=== PATIENT | male | born 1990 ===

== ENCOUNTER 2021-04-25 10:18 | Emergency (ER) | payer SELFPAY ==
[2021-04-25 11:19] VITALS: BP 133/65
[2021-04-25] MEDS ORDERED: ASPIRIN 325 MG TAB PO ONE (11:19)
--- NOTE | 2021-04-25 11:20 | Event Note ---
ED Screening Note Date of service: 04/25/21 Time: 11:18 ED Screening Note: 31 y o male presents with cp after cocaine use yesterday This initial assessment/diagnostic orders/clinical plan/treatment(s) is/are subject to change based on patients health status, clinical progression and re-assessment by fellow clinical providers in the ED. Further treatment and workup at subsequent clinical providers discretion. Patient/guardian urged not to elope from the ED as their condition may be serious if not clinically assessed and managed. Initial orders include: cp protocol
--- NOTE | 2021-04-25 12:05 | XRay Report ---
CHEST 2 VIEWS INDICATION / CLINICAL INFORMATION: cp. COMPARISON: None available. FINDINGS: SUPPORT DEVICES: None. HEART / MEDIASTINUM: No significant abnormality. LUNGS / PLEURA: No significant pulmonary or pleural abnormality. No pneumothorax. ADDITIONAL FINDINGS: No significant additional findings. IMPRESSION: No significant abnormality Signer Name: Jeffrey Díaz MD FACR Signed: 04/25/2021 12:01 PM Workstation Name: [id number]
[2021-04-25 13:22] LABS: Basophils % (Auto) 0.4 % (0.0-1.8); Eosinophils # (Auto) 0.1 K/mm3 (0.0-0.4); Eosinophils % (Auto) 0.5 % (0.0-4.3); Hematocrit 48.5 % (35.5-45.6); Hemoglobin 16.9 gm/dl (11.8-15.2); Lymphocytes # (Auto) 1.8 K/mm3 (1.2-5.4); Lymphocytes % (Auto) 16.2 % (13.4-35.0); Mean Corpuscular HGB Conc 35 % (32-34); Mean Corpuscular Volume 95 fl (84-94); Platelet Count 192 K/mm3 (140-440); Red Blood Count 5.09 M/mm3 (3.65-5.03); Red Cell Distribution Width 12.5 % (13.2-15.2)
[2021-04-25 13:42] LABS: Alanine Aminotransferase 29 units/L (7-56); Albumin 4.6 g/dL (3.9-5); Blood Urea Nitrogen 18 mg/dL (9-20); Calcium 8.7 mg/dL (8.4-10.2); Hemolysis Index 6
[2021-04-25 13:56] LABS: BUN/Creatinine Ratio 26
--- NOTE | 2021-04-26 14:40 | Electrocardiograph Report ---
[facility] Test Date: 2021-04-25 Test Time: 11:25:54 Pat Name: STARLA ABEL Department: Room: Gender: M [employer]: : 1990 Requested By: PAOLO DO Order Number: [id number] Reading MD: Jose Miguel Mitchell Measurements Intervals [place] Rate: 92 P: 29 [place]: 147 QRS: -49 QRSD: 87 T: 30 QT: 329 QTc: 407 Interpretive Statements Sinus rhythm Left axis deviation No previous ECG available for comparison Electronically Signed On 04-26-2021 14:40:05 EDT by Jose Miguel Mitchell
== END 2021-04-25 16:30 ==
LOC: ED 10:18
DX: R10.9 Unspecified abdominal pain (principal); Z53.21 Procedure and treatment not carried out due to patient leaving prior to being seen by health care provider
CPT/HCPCS: 36415; 71046; 80053; 84484; 85025; 93005